=== PATIENT | male | born 1980 | race Caucasian/White ===

== ENCOUNTER → 2018-02-14 | Outpatient (REF) | payer OTHER ==
[2018-02-14 12:08] LABS: ALBUMIN 4.6 GM/DL (3.2-5.2); ALBUMIN/GLOBULIN RATIO 1.31 (1.00-1.93); ALKALINE PHOSPHATASE 75 U/L (45-117); ALT/SGPT 36 U/L (12-78); ANION GAP 4 MEQ/L (8-16); AST/SGOT 21 U/L (7-37); BILIRUBIN,TOTAL 0.6 MG/DL (0.2-1.0); BLOOD UREA NITROGEN 12 MG/DL (7-18); CALCIUM LEVEL 9.6 MG/DL (8.5-10.1); CARBON DIOXIDE LEVEL 33 MEQ/L (21-32); CHLORIDE LEVEL 102 MEQ/L (98-107); CHOLESTEROL LEVEL 228 MG/DL (<200); CHOLESTEROL RISK RATIO 4.956 (<5); CREATININE FOR GFR 1.17 MG/DL (0.70-1.30); GLOMERULAR FILTRATION RATE > 60.0 (>60); GLUCOSE, FASTING 69 MG/DL (70-100); HDL CHOLESTEROL 46 MG/DL (>40); NON-HDL-C 182 MG/DL; POTASSIUM SERUM 4.5 MEQ/L (3.5-5.1); SODIUM LEVEL 139 MEQ/L (136-145); TOTAL PROTEIN 8.1 GM/DL (6.4-8.2); TRIGLYCERIDES LEVEL 205 MG/DL (<150)
== END ==
LOC: M SFHCCLAY 08:19
DX: E78.2 Mixed hyperlipidemia (principal)

== ENCOUNTER → 2020-02-20 | Outpatient (REF) | payer OTHER ==
[2020-02-20 12:35] LABS: ALBUMIN 4.1 GM/DL (3.2-5.2); ALT/SGPT 27 U/L (12-78); BILIRUBIN,TOTAL 0.9 MG/DL (0.2-1.0); BLOOD UREA NITROGEN 15 MG/DL (7-18); CALCIUM LEVEL 9.8 MG/DL (8.5-10.1); CARBON DIOXIDE LEVEL 30 MEQ/L (21-32); CHLORIDE LEVEL 104 MEQ/L (98-107); CHOLESTEROL LEVEL 224 MG/DL (<200); CHOLESTEROL RISK RATIO 4.869 (<5); CREATININE FOR GFR 1.16 MG/DL (0.70-1.30); GLOMERULAR FILTRATION RATE > 60.0 (>60); GLUCOSE, FASTING 91 MG/DL (70-100); HDL CHOLESTEROL 46 MG/DL (>40); LDL CHOLESTEROL 148 MG/DL (<100); NON-HDL-C 178 MG/DL; POTASSIUM SERUM 4.5 MEQ/L (3.5-5.1); SODIUM LEVEL 140 MEQ/L (136-145); TOTAL PROTEIN 7.3 GM/DL (6.4-8.2); TRIGLYCERIDES LEVEL 152 MG/DL (<150)
== END ==
LOC: M SFHCCLAY 08:12
PROVIDERS: ATTEND Family Medicine
DX: E78.2 Mixed hyperlipidemia (principal)

== ENCOUNTER → 2020-08-28 | Outpatient (CLI) | payer OTHER ==
--- NOTE | 2020-08-30 11:48 | SLEEPCENT ---
DATE: 08/28/2020 ORDERED BY: Bárbara Nichols Nocturnal polysomnography was performed for evaluation of sleep physiology in this patient with a prior history of sleep disruption, experiencing excessive daytime somnolence, morning headaches, and nonrestorative sleep. There was 8 hours and 30 of data reviewed. There was 393.5 minutes of sleep identified. Sleep latency was prolonged at 84 minutes. REM latency was prolonged at 126.5 minutes. Sleep architecture was fairly well preserved. There were four REM cycles noted. Overall sleep efficiency was 77.8%. The electrocardiogram showed a sinus rhythm with an average heart rate of 60 beats per minute. Rate ranged 50-80 beats per minute. EEG showed fairly normal waveforms for wake and sleep. No focal events were identified. There were 73 respiratory events identified of 10 seconds in duration or greater for an apnea-hypopnea index of 11.1. The events were primarily obstructive, not exclusive to sleep stage nor body posture, though they were more frequent in the supine position. Arousals from respiratory events occurred 2.3 times per hour. Oxygen saturations were maintained. There was some limb activity. Limb movement arousal index was 7.3. IMPRESSION: Obstructive sleep apnea syndrome (G47.33). Apnea-hypopnea index 11.1. RECOMMENDATION: The patient should be encouraged to return to the sleep disorder center for pressure therapy. In the interim, alcohol and sedative avoidance should be practiced and caution exercised during the operation of motor vehicles. GUSTAVOD
== END ==
LOC: M SLEEP 20:00
PROVIDERS: ATTEND Nurse Practitioner Adult Health
DX: G47.33 Obstructive sleep apnea (adult) (pediatric) (principal)

== ENCOUNTER → 2020-09-11 | Outpatient (CLI) | payer OTHER ==
--- NOTE | 2020-09-16 11:35 | SLEEPCENT ---
DATE: 09/11/2020 ORDERED BY: Bárbara Nichols Nocturnal polysomnography was performed for the titration of pressure therapy in this patient with obstructive sleep apnea syndrome, apnea-hypopnea index of 11.1. For testing, patient was fit with a [employer]Med Quattro full-face mask of large size. There was 4 cm of water pressure applied to the circuit, and the lights were extinguished. There was 6 hours and 31 minutes of data reviewed. There was 338.5 minutes of sleep identified. Sleep latency was mildly prolonged at 23 minutes. REM latency was normal at 72.5 minutes. Sleep architecture was good with four REM cycles. Overall sleep efficiency was 87.9%. The electrocardiogram showed a sinus rhythm with average heart rate of 64 beats per minute. EEG showed normal waveforms for wake and sleep. Respiratory events were fully palliated with CPAP at a pressure of +6, and remaining measures of sleep physiology were reasonably normal. IMPRESSION: Obstructive sleep apnea syndrome (G47.33). RECOMMENDATION: Nightly use of pressure therapy, 6 cm of water. MTDD
== END ==
LOC: M SLEEP 20:00
PROVIDERS: ATTEND Nurse Practitioner Adult Health
DX: G47.33 Obstructive sleep apnea (adult) (pediatric) (principal)

== ENCOUNTER → 2021-03-28 | Outpatient (CLI) | payer OTHER ==
--- NOTE | 2021-03-28 12:51 | REPVR ---
PROCEDURE INFORMATION: Exam: MR Head Without Contrast Exam date and time: 03/28/2021 9:30 AM Age: 40 years old Clinical indication: Pain; Headache not specified; Additional info: Generalized alvarez's, otalgia darío ears TECHNIQUE: Imaging protocol: MR of the head without contrast. COMPARISON: No relevant prior studies available. FINDINGS: Brain: No abnormal areas of signal intensity are seen. Diffusion images are normal. No evidence of acute infarction. No evidence of acute intracranial hemorrhage. No extra-axial fluid collections. Ventricles and cerebrospinal fluid spaces are normal in size and configuration for the patient's age. There is no evidence of mass-effect or midline shift. Flow voids of the [place] and major cerebral vascular structures appear intact. Craniocervical junction appears unremarkable, with normal position of cerebellar tonsils and no evidence of Chiari I malformation. Cerebral ventricles: Normal. No ventriculomegaly. Bones/joints: Unremarkable as visualized. Paranasal sinuses: There is left maxillary sinus retention cyst or polyp. There is no significant mucosal thickening in paranasal sinuses. No air-fluid levels. Mastoid air cells: No significant mastoid effusion. Orbital cavity: Unremarkable. Soft tissues: Unremarkable as visualized. IMPRESSION: Unremarkable brain MRI for age. No acute infarct, acute hemorrhage, or evidence of mass. Electronically signed by: Meme Smalls On 03/28/2021 12:51:07 PM
== END ==
LOC: M PLARAD 08:28
PROVIDERS: ATTEND Family Medicine
DX: H92.03 Otalgia, bilateral (principal); R51.9 Headache, unspecified

== ENCOUNTER → 2021-11-27 | Outpatient (REF) | payer OTHER | LOC: M LABDRAWC 15:49 | PROVIDERS: ATTEND Psychiatry & Neurology Neurology | DX: R51.9 Headache, unspecified (principal) ==

== ENCOUNTER → 2022-03-10 | Outpatient (REF) | payer OTHER ==
[2022-03-11 12:59] LABS: ALBUMIN 4.2 GM/DL (3.2-5.2); ALT/SGPT 27 U/L (12-78); BILIRUBIN,TOTAL 0.4 MG/DL (0.2-1.0); BLOOD UREA NITROGEN 14 MG/DL (7-18); CALCIUM LEVEL 9.2 MG/DL (8.5-10.1); CARBON DIOXIDE LEVEL 32 MEQ/L (21-32); CHLORIDE LEVEL 105 MEQ/L (98-107); CHOLESTEROL LEVEL 204 MG/DL (<200); CHOLESTEROL RISK RATIO 4.434 (<5); CREATININE FOR GFR 1.19 MG/DL (0.70-1.30); GLOMERULAR FILTRATION RATE > 60.0 (>60); GLUCOSE, FASTING 91 MG/DL (70-100); HDL CHOLESTEROL 46 MG/DL (>40); LDL CHOLESTEROL 120 MG/DL (<100); NON-HDL-C 158 MG/DL; POTASSIUM SERUM 4.3 MEQ/L (3.5-5.1); SODIUM LEVEL 140 MEQ/L (136-145); TOTAL PROTEIN 7.4 GM/DL (6.4-8.2); TRIGLYCERIDES LEVEL 188 MG/DL (<150)
== END ==
LOC: M SFHCCLAY 15:36
PROVIDERS: ATTEND Family Medicine
DX: E78.2 Mixed hyperlipidemia (principal)

== ENCOUNTER → 2022-05-20 | Outpatient (CLI) | payer OTHER | LOC: M RAD 07:34 | PROVIDERS: ATTEND Family Medicine | DX: M26.623 Arthralgia of bilateral temporomandibular joint (principal); H92.03 Otalgia, bilateral ==

== ENCOUNTER → 2022-05-28 | Outpatient (REF) | payer OTHER | LOC: M SFHCCLAY 09:27 | PROVIDERS: ATTEND Nurse Practitioner Family | DX: J02.9 Acute pharyngitis, unspecified (principal) ==

== ENCOUNTER → 2024-10-13 | Day surgery (SDC) | payer OTHER ==
[~2024-10-13] VITALS: Ht 182.9 cm; Wt 84.9 kg
[~2024-10-13] MED LIST: AMBI10TA PO; fentaNYL 100 MCG/2 ML INJECTION As Ordered ONE; propofoL 500 MG/50 ML VIAL As Ordered ONE
[2024-10-13 10:37] VITALS: TEMP 97.4
[2024-10-13 11:05] VITALS: BP 123/84; O2SAT 100
== END | disposition home or self-care (01) ==
LOC: M OPP 08:52
PROVIDERS: ATTEND Surgery
DX: Z12.11 Encounter for screening for malignant neoplasm of colon (principal); Z12.12 Encounter for screening for malignant neoplasm of rectum; D12.2 Benign neoplasm of ascending colon; G47.30 Sleep apnea, unspecified; Z79.899 Other long term (current) drug therapy
CPT/HCPCS: 45385; 88305; J3010